=== PATIENT | female | born 1940 | race Caucasian/White ===

== ENCOUNTER 2017-02-05 03:53 | Emergency (ER) | payer MEDICARE, BC ==
[2017-02-05] MEDS ORDERED: Aspirin Low Dose CHEW TAB* 81 MG PO ONE (04:15)
[2017-02-05 04:45] LABS: Hematocrit 38 % (35-47); Hemoglobin 12.8 g/dl (12.0-16.0); Mean Corpuscular HGB Conc 34 g/dl (31-36); Mean Corpuscular Hemoglobin 30 pg (27-31); Mean Corpuscular Volume 90 fL (80-97); Mean Platelet Volume 7 um3 (7.4-10.4); Red Blood Count 4.23 10^6/ul (4.0-5.4); Red Cell Distribution Width 14 % (10.5-15); White Blood Count 7.7 10^3/ul (3.5-10.8)
[2017-02-05 04:50] LABS: Albumin 3.7 g/dL (3.2-5.2); BUN/Creatinine Ratio 23.6 (8-20); EGFR African American 79.3 (>60); EGFR Non-African American 61.7 (>60); Globulin 2.7 g/dL (2-4); Magnesium 2.3 mg/dL (1.9-2.7); Potassium 3.8 mmol/L (3.5-5.0); Total Bilirubin 0.6 mg/dL (0.2-1.0); Total Protein 6.4 g/dL (6.4-8.9)
--- NOTE | 2017-02-05 05:39 | ED ---
Ashley Patel Erika, scribed for Demian Verdugo MD on 02/05/17 at 0419 . HPI Chest Pain - HPI Summary HPI Summary: Patient is a 76-year-old female presenting to the ED with a CC of chest pain. Patient reports that she woke up at 03:00 to use the bathroom, which is normal for her, but had pain under her right breast. She reports she became very diaphoretic for 1 minute. Pain then began to radiate down the right arm. Pt reports pain is aggravated by deep breathing and palpation, but is not aggravated by movement. Hx Bethany's, flipped T waves in EKG. Pt denies Hx DM , HTN. She is followed by Dr. Fuentes. - History of Current Complaint Chief Complaint: EDChestPainROMI Time Seen by Provider: 02/05/17 04:10 Hx Obtained From: Patient Onset/Duration: Started Hours Ago - 1 hour, Atraumatic, Still Present Timing: Constant Current Severity: Moderate Pain Intensity: 8 Pain Scale Used: 0-10 Numeric Chest Pain Location: Right Anterior Chest Pain Radiates: Yes Chest Pain Radiates To:: Arm - R Aggravating Factor(s): Deep Breaths, Other: - palpation Alleviating Factor(s): Nothing Associated Signs and Symptoms: Positive: Diaphoresis - Allergy/Home Medications Allergies/Adverse Reactions: Allergies Allergy/AdvReac Type Severity Reaction Status Date / Time Penicillins Allergy Rash Verified 02/05/17 04:03 Sulfa Antibiotics Allergy See Comment Verified 02/05/17 04:03 PMH/Surg Hx/FS Hx/Imm Hx Endocrine/Hematology History: Reports: Hx Thyroid Disease - Bethany Denies: Hx Diabetes Cardiovascular History: Denies: Hx Hypertension Infectious Disease History: No Infectious Disease History: Denies: Traveled Outside the [place] in Last 30 Days - Family History Known Family History: Positive: Cardiac Disease - Social History Occupation: Retired Lives: With Family Review of Systems Positive: Skin Diaphoresis Positive: Chest Pain - radiating into R arm All Other Systems Reviewed And Are Negative: Yes Physical Exam Triage Information Reviewed: Yes Vital Signs On Initial Exam: Initial Vitals Temp Pulse Resp BP Pulse Ox 97 F 66 12 136/72 97 02/05/17 03:58 02/05/17 03:58 02/05/17 03:58 02/05/17 03:58 02/05/17 03:58 Vital Signs Reviewed: Yes Appearance: Positive: Well-Appearing, Pain Distress - mild discomfort Skin: Positive: Warm, Skin Color Reflects Adequate Perfusion Eyes: Positive: EOMI, SERAFIN ENT: Positive: Hearing grossly normal Neck: Positive: Supple Respiratory/Lung Sounds: Positive: Clear to Auscultation - mild tnderness to palp rt ant chest wall under breast, Breath Sounds Present Cardiovascular: Positive: RRR Abdomen Description: Positive: Nontender, Soft Bowel Sounds: Positive: Present Musculoskeletal: Positive: Strength/ROM Intact Neurological: Positive: Alert, Oriented to Person Place, Time Diagnostics - Vital Signs Vital Signs Temp Pulse Resp BP Pulse Ox 02/05/17 03:58 97 F 66 12 136/72 97 - Laboratory Lab Results: Lab Results 02/05/17 02/05/17 02/05/17 Range/Units 04:23 04:23 04:23 WBC 7.7 (3.5-10.8) 10^3/ul RBC 4.23 (4.0-5.4) 10^6/ul Hgb 12.8 (12.0-16.0) g/dl Hct 38 (35-47) % MCV 90 (80-97) fL MCH 30 (27-31) pg MCHC 34 (31-36) g/dl RDW 14 (10.5-15) % Plt Count 431 (150-450) 10^3/ul MPV 7 L (7.4-10.4) um3 Neut % (Auto) 46.5 (38-83) % Lymph % (Auto) 36.4 (25-47) % Noble % (Auto) 11.5 H (1-9) % Eos % (Auto) 4.1 (0-6) % Baso % (Auto) 1.5 (0-2) % Absolute Neuts (auto) 3.6 (1.5-7.7) 10^3/ul Absolute Lymphs (auto) 2.8 (1.0-4.8) 10^3/ul Absolute Monos (auto) 0.9 H (0-0.8) 10^3/ul Absolute Eos (auto) 0.3 (0-0.6) 10^3/ul Absolute Basos (auto) 0.1 (0-0.2) 10^3/ul Absolute Nucleated RBC 0 10^3/ul Nucleated RBC % 0.1 D-Dimer, Quantitative < 200 (Less Than 230) ng/mL Sodium 139 (133-145) mmol/L Potassium 3.8 (3.5-5.0) mmol/L Chloride 105 (101-111) mmol/L Carbon Dioxide 27 (22-32) mmol/L Anion Gap 7 (2-11) mmol/L BUN 21 (6-24) mg/dL Creatinine 0.89 (0.51-0.95) mg/dL Est GFR ( Amer) 79.3 (>60) Est GFR (Non-Af Amer) 61.7 (>60) BUN/Creatinine Ratio 23.6 H (8-20) Glucose 94 (70-100) mg/dL Lactic Acid (0.5-2.0) mmol/L Calcium 9.0 (8.6-10.3) mg/dL Magnesium 2.3 (1.9-2.7) mg/dL Total Bilirubin 0.60 (0.2-1.0) mg/dL AST 17 (13-39) U/L ALT 13 (7-52) U/L Alkaline Phosphatase 46 (34-104) U/L Troponin I 0.00 (<0.04) ng/mL Total Protein 6.4 (6.4-8.9) g/dL Albumin 3.7 (3.2-5.2) g/dL Globulin 2.7 (2-4) g/dL Albumin/Globulin Ratio 1.4 (1-3) 02/05/17 Range/Units 04:23 WBC (3.5-10.8) 10^3/ul RBC (4.0-5.4) 10^6/ul Hgb (12.0-16.0) g/dl Hct (35-47) % MCV (80-97) fL MCH (27-31) pg MCHC (31-36) g/dl RDW (10.5-15) % Plt Count (150-450) 10^3/ul MPV (7.4-10.4) um3 Neut % (Auto) (38-83) % Lymph % (Auto) (25-47) % Noble % (Auto) (1-9) % Eos % (Auto) (0-6) % Baso % (Auto) (0-2) % Absolute Neuts (auto) (1.5-7.7) 10^3/ul Absolute Lymphs (auto) (1.0-4.8) 10^3/ul Absolute Monos (auto) (0-0.8) 10^3/ul Absolute Eos (auto) (0-0.6) 10^3/ul Absolute Basos (auto) (0-0.2) 10^3/ul Absolute Nucleated RBC 10^3/ul Nucleated RBC % D-Dimer, Quantitative (Less Than 230) ng/mL Sodium (133-145) mmol/L Potassium (3.5-5.0) mmol/L Chloride (101-111) mmol/L Carbon Dioxide (22-32) mmol/L Anion Gap (2-11) mmol/L BUN (6-24) mg/dL Creatinine (0.51-0.95) mg/dL Est GFR ( Amer) (>60) Est GFR (Non-Af Amer) (>60) BUN/Creatinine Ratio (8-20) Glucose (70-100) mg/dL Lactic Acid 1.0 (0.5-2.0) mmol/L Calcium (8.6-10.3) mg/dL Magnesium (1.9-2.7) mg/dL Total Bilirubin (0.2-1.0) mg/dL AST (13-39) U/L ALT (7-52) U/L Alkaline Phosphatase (34-104) U/L Troponin I (<0.04) ng/mL Total Protein (6.4-8.9) g/dL Albumin (3.2-5.2) g/dL Globulin (2-4) g/dL Albumin/Globulin Ratio (1-3) Result Diagrams: 02/05/17 04:23 02/05/17 04:23 Lab Statement: Any lab studies that have been ordered have been reviewed, and results considered in the medical decision making process. - Radiology CXR Xray Interpretation: No Acute Changes Radiology Interpretation Completed By: ED Physician - EKG 04:06 Cardiac Rate: NL - at 63 bpm EKG Rhythm: Sinus Rhythm ST Segment: Non-Specific Chest Pain Course/Dx - Course Assessment/Plan: A 76 y/o F presents to the ED with a CC of chest pain with associated diaphoresis. Pt given ASA in the ED. EKG shows NSR with non-specific ST/T wave changes. CXR shows no acute disease. Lab work obtained. Initial troponin 0.00. Pt will be discharged home if second troponin is negative. - Diagnoses Provider Diagnoses: Chest pain Discharge - Discharge Plan Condition: Stable Disposition: HOME Patient Education Materials: Chest Pain (ED) Referrals: [facility] [place]] - 2 Days Additional Instructions: Please follow up with your PCP. The documentation as recorded by the Ashley lam Erika accurately reflects the service I personally performed and the decisions made by , Demian Verdugo MD.
--- NOTE | 2017-02-05 07:51 | RAD ---
Indication: Chest pain. 2 views of the chest are reviewed. Dual-energy PA views were obtained. No prior study is available for comparison. No mediastinal shift is noted. Heart is of normal size and configuration. Lung pina demonstrate no pleural fluid, pneumonia or pneumothorax. IMPRESSION: No active cardiopulmonary disease is noted.
--- NOTE | 2017-02-05 10:39 | ED ---
Ziyad Patel Billy, scribed for Ken Flores MD on 02/05/17 at 1038 . Progress - Progress Note Progress Note: Dr. Verdugo requested that we follow up on the second troponin, which is 0.01. She will be discharged home to follow up with PCP. Course/Dx - Diagnoses Provider Diagnoses: Chest pain Discharge - Discharge Plan Condition: Stable Disposition: HOME Patient Education Materials: Chest Pain (ED) [place]errals: [facility] [facility] [place] [facility] [place]] - 2 Days Additional Instructions: Please follow up with your PCP. The documentation as recorded by the Ziyad lam Billy accurately reflects the service I personally performed and the decisions made by Mark lópez Walter, MD.
[2017-02-05 11:22] VITALS: BP 114/62
== END 2017-02-05 11:21 | disposition home or self-care (01) ==
LOC: ED 03:53
DX: R07.9 Chest pain, unspecified (principal); R61 Generalized hyperhidrosis
CPT/HCPCS: 36415; 71020; 80053; 83605; 83735; 84484; 85025; 85379; 93005; 99283; A9270-GY